=== PATIENT | female | born 2005 | race Caucasian/White ===

== ENCOUNTER 2024-08-23 11:11 | Emergency (ER) | payer OTHER, SELFPAY ==
--- NOTE | ~2024-08-23 | XR_ITS ---
[XR ribs LT 2V w CXR 2V ] INDICATION: Left rib pain TECHNIQUE: Frontal projection of the upper left ribs, frontal projection of the lower left ribs, obli que projection of all the left ribs, frontal inspiratory chest x-ray for interpretation. FINDINGS: There are no displaced rib fractures identified. There are no soft tissue abnormality see n. The lungs are clear. IMPRESSION: 1:No acute displaced rib fractures. Reviewed, dictated and finalized at location B. [facility] [employer]
[2024-08-23 11:37] VITALS: BP 123/87; PULSE 82; RESP 18; TEMP 36.6; O2SAT 100
[2024-08-23] MEDS: ACETAMINOPHEN 500 MG TABLET 1000 MG PO (12:11)
--- NOTE | 2024-08-23 12:20 | ED.BACK ---
HPI - Back Pain/Injury General Chief Complaint: Back Pain/Injury Stated Complaint: fall/back pain Time Seen by Provider: 08/23/24 11:29 Source: patient Mode of arrival: ambulatory Limitations: no limitations History of Present Illness HPI Narrative: Patient is a 18-year-old female who presents the ED with report of left-sided back pain. Patient reports she tripped and fell backwards into her desk 2 days ago. She has had pain throughout her left lateral back/ ribs since then. She then felt a pop in her back last night while stretching. She has not taken anything further for pain. Reports pain is worse with movement and taking deep breaths. Denies shortness of breath. Related Data Allergies Allergy/AdvReac Type Severity Reaction Status Date / Time No Known Allergies Allergy Mild Verified 08/23/24 11:35 Review of Systems Review of Systems: All systems reviewed & are unremarkable except as noted in HPI. All systems reviewed & are unremarkable except as noted in HPI and below Exam Narrative: GENERAL: Well appearing, well-nourished, non-toxic, in no acute distress. HEAD: Normocephalic, atraumatic. RESPIRATORY: Airway patent, respirations nonlabored. Clear to auscultation bilaterally, no rales, rhonchi, wheezing. Equal lung sounds bilaterally. CARDIOVASCULAR: Regular rate and rhythm without murmurs, rubs, or gallops. MUSCULOSKELETAL: Moves all extremities. No gross deformities. Tenderness to palpation along inferior posterolateral ribcage with small area of bruising present. No splinting. No midline lumbar spinal tenderness. SKIN: Warm, dry, normal color. NEURO: A&O X3. Speech clear. Cranial nerves II-XII grossly intact. No ataxic movements. PSYCHIATRIC: Appropriate mood and affect. Normal interaction. Course Vital Signs Vital signs: Vital Signs Temperature 97.9 F 08/23/24 11:37 Pulse Rate 82 08/23/24 11:37 Respiratory Rate 18 08/23/24 11:37 Blood Pressure 123/87 08/23/24 11:37 Pulse Oximetry 100 08/23/24 11:37 Temperature 97.9 F 08/23/24 11:37 Pulse Rate 82 08/23/24 11:37 Respiratory Rate 18 08/23/24 11:37 Blood Pressure 123/87 08/23/24 11:37 Pulse Oximetry 100 08/23/24 11:37 MDM - Back Pain/Injury MDM Narrative Medical decision making narrative: Patient presents to ED with left lateral /inferior rib pain after falling into a desk 2 days ago. Vital signs are stable. Equal breath sounds bilaterally. Patient denying shortness of breath. X-ray of left ribs/chest negative for displaced rib fracture. No other acute findings. No other significant tenderness throughout spine or abdomen to suggest need for further imaging at this time. Discuss diagnosis of rib contusion, management of such, will prescribe lidocaine patches, recommended patient continue Tylenol and ibuprofen as needed for pain. Given return precautions. She agrees with plan. Discharged in stable condition. Medical Records Attestation: I reviewed the patient's medical records. Imaging Data Attestation: I personally reviewed and interpreted this imaging study as follows: Radiologist's impression: ITS Impressions Ribs w/Chest X-Ray 08/23/24 12:42 IMPRESSION: 1:No acute displaced rib fractures. Discharge Plan Discharge Clinical Impression: Contusion of rib on left side Qualifiers: Encounter type: initial encounter Qualified Code(s): S20.212A - Contusion of left front wall of thorax, initial encounter Patient Disposition: Home, Self-Care Condition: Stable Instructions: Antibiotic Form, Musculoskeletal Pain (ED), Rib Contusion (ED) Additional Instructions: Continue Tylenol and Ibuprofen as needed for pain. You may use ice/heat, lidocaine patches to area of pain. Follow-up with your primary care doctor for further evaluation if needed. Return to the ED if you experience worsening or severe pain, recurrent injury, shortness of breath, unable to keep down food or drink, or any other symptoms of concern. Patient Language: [place] Prescriptions: New lidocaine 5 % adhesive patch,medicated 1 patch topical DAILY Qty: 15 0RF Rx Instructions: leave on most painful area for up to 12 hrs Follow-up/Referrals: UNKNOWN,DOCTOR [Primary Care Provider] - Time of Disposition: 12:56
== END 2024-08-23 13:18 | disposition home or self-care (01) ==
PROVIDERS: Emergency Provider Physician Assistant
DX: S20.212A Contusion of left front wall of thorax, initial encounter (principal); W01.190A Fall on same level from slipping, tripping and stumbling with subsequent striking against furniture, initial encounter
CPT/HCPCS: 71046; 71100; 99283; A9270